=== PATIENT | male | born 1970 | race African-American/Black ===

== ENCOUNTER 2022-09-03 13:34 | Inpatient (IN) | payer OTHER ==
[2022-09-03 14:49] VITALS: BMI 27.9
[2022-09-03] MEDS ORDERED: MAG HYDROX/AL HYDROX/SIMETH 30 ML UNIT-DOSE CUP PO PRN (15:55)
[2022-09-03] MEDS ORDERED: MAGNESIUM HYDROX 2400MG/30ML ORAL SUSPENSION 30 ML CUP PO PRN (15:55)
[2022-09-03] MEDS ORDERED: LOPERAMIDE HCL 2 MG CAPSULE PO PRN (15:55)
[2022-09-03] MEDS ORDERED: P-EPHED 60MG/TRIPROLIDI 2.5MG TABLET PO PRN (15:55)
[2022-09-03] MEDS ORDERED: BENZOCAINE/MENTHOL (CHLORASEPTIC ) LOZENGE MM PRN (15:55)
[2022-09-03] MEDS ORDERED: guaiFENesin 200 MG/10 ML 10 ML UNIT-DOSE CUPS PO PRN (15:55)
[2022-09-03] MEDS ORDERED: POLYETHYLENE GLYCOL (HEALTHYLAX) 3350 17 GM PACKET PO PRN (15:55)
[2022-09-03] MEDS ORDERED: ALBUTEROL SO4 HFA INHALER IH PRN (21:23)
[2022-09-03] MEDS: THIAMINE HCL 100 MG TABLET (FP) PO SCH (21:47)
[2022-09-03] MEDS: MELATONIN 5 MG TABLETS PO SCH (21:47)
[2022-09-03] MEDS ORDERED: TUBERCULIN PPD 5 TU/0.1ML VIAL ID ONE (23:52)
[2022-09-04] MEDS: ELVITEG/COB/EMTRI/TENOF (GENVOYA) TABLET (NF) PO SCH (08:41)
[2022-09-04] MEDS: ASPIRIN 81 MG CHEWABLE TABLETS PO SCH (09:50)
[2022-09-04] MEDS: PRENATAL VITAMINS W/ FOLIC ACID TABLET (FP) PO SCH (09:50)
[2022-09-04] MEDS: LISINOPRIL 10 MG TABLET PO SCH (09:50)
[2022-09-04] MEDS: FOLIC ACID 1 MG TABLET (FP) PO SCH (09:50)
[2022-09-04] MEDS ORDERED: SALICYLIC ACID 1 APPLIC BOTTLE TP PRN (10:07)
[2022-09-04] MEDS: TOLNAFTATE 1% CREAM 15 GM TUBE TP SCH ×2 (11:49→21:22)
[2022-09-04] MEDS ORDERED: ALBUTEROL SO4 2 MG TABLET PO SCH (14:00)
[2022-09-04 17:07] LABS: HEMATOCRIT 42.2 % (35.4-49); HEMOGLOBIN 13.7 GM/dL (11.7-16.9); MCH 29.6 pg (25.7-33.7); MCHC 32.6 g/dl (32.0-35.9); MEAN CELL VOLUME 91.1 fl (80-96); MEAN PLT VOLUME 9.2 fl (7.5-11.1); PLATELET COUNT 204 10^3/uL (134-434); RBC 4.64 M/mm3 (4.00-5.60); RDW 13.9 % (11.9-15.9)
[2022-09-04 17:08] LABS: CALCIUM 9.4 mg/dL (8.5-10.1)
[2022-09-04 17:09] LABS: ALBUMIN 3.4 g/dl (3.4-5.0); BLOOD UREA NITROGEN 15.5 mg/dL (7-18)
[2022-09-04 17:12] LABS: CREATININE 1.1 mg/dL (0.55-1.3)
[2022-09-04 17:14] LABS: BILIRUBIN,TOTAL 0.2 mg/dL (0.2-1); TOT PROT 7.3 g/dl (6.4-8.2)
[2022-09-04 18:04] LABS: SYPHILIS W/ RPR CONF REACTIVE (NONREACTIVE)
[2022-09-04] MEDS: MELATONIN 5 MG TABLETS PO SCH (21:22)
[2022-09-04] MEDS: THIAMINE HCL 100 MG TABLET (FP) PO SCH (21:22)
[2022-09-04] MEDS: ACETAMINOPHEN 325 MG TABLET (FP) PO PRN (21:23)
[2022-09-04] MEDS: GABAPENTIN 300 MG CAPSULE PO SCH (21:48)
[2022-09-05] MEDS: ELVITEG/COB/EMTRI/TENOF (GENVOYA) TABLET (NF) PO SCH (07:03)
[2022-09-05] MEDS: ASPIRIN 81 MG CHEWABLE TABLETS PO SCH (09:43)
[2022-09-05] MEDS: FOLIC ACID 1 MG TABLET (FP) PO SCH (09:43)
[2022-09-05] MEDS: GABAPENTIN 300 MG CAPSULE PO SCH ×2 (09:44→21:13)
[2022-09-05] MEDS: LISINOPRIL 10 MG TABLET PO SCH (09:44)
[2022-09-05] MEDS: TOLNAFTATE 1% CREAM 15 GM TUBE TP SCH ×2 (09:44→21:36)
[2022-09-05] MEDS: PRENATAL VITAMINS W/ FOLIC ACID TABLET (FP) PO SCH (09:44)
[2022-09-05] MEDS: hydrOXYzine PAMOATE 25 MG CAPSULE (FP) PO PRN (21:12)
[2022-09-05] MEDS: THIAMINE HCL 100 MG TABLET (FP) PO SCH (21:13)
[2022-09-05] MEDS: MELATONIN 5 MG TABLETS PO SCH (21:13)
[2022-09-06] MEDS: hydrOXYzine PAMOATE 25 MG CAPSULE (FP) PO PRN ×2 (06:37→21:40)
[2022-09-06] MEDS: LISINOPRIL 10 MG TABLET PO SCH (09:21)
[2022-09-06] MEDS: ASPIRIN 81 MG CHEWABLE TABLETS PO SCH (09:21)
[2022-09-06] MEDS: PRENATAL VITAMINS W/ FOLIC ACID TABLET (FP) PO SCH (09:21)
[2022-09-06] MEDS: TOLNAFTATE 1% CREAM 15 GM TUBE TP SCH ×2 (09:21→21:47)
[2022-09-06] MEDS: FOLIC ACID 1 MG TABLET (FP) PO SCH (09:21)
[2022-09-06] MEDS: GABAPENTIN 300 MG CAPSULE PO SCH ×2 (09:21→21:39)
[2022-09-06] MEDS ORDERED: ELVITEG/COB/EMTRI/TENOF (GENVOYA) TABLET (NF) PO SCH (10:54)
[2022-09-06] MEDS: ELVITEG/COB/EMTRI/TENOF (GENVOYA) TABLET (NF) PO SCH ×2 (11:28→12:42)
[2022-09-06] MEDS: DOCUSATE SODIUM 100 MG CAPSULE (FP) PO PRN (21:39)
[2022-09-06] MEDS: THIAMINE HCL 100 MG TABLET (FP) PO SCH (21:39)
[2022-09-06] MEDS: MELATONIN 5 MG TABLETS PO SCH (21:40)
[2022-09-07] MEDS: FOLIC ACID 1 MG TABLET (FP) PO SCH (09:35)
[2022-09-07] MEDS: GABAPENTIN 300 MG CAPSULE PO SCH ×2 (09:35→21:20)
[2022-09-07] MEDS: hydrOXYzine PAMOATE 25 MG CAPSULE (FP) PO PRN ×2 (09:35→21:20)
[2022-09-07] MEDS: LISINOPRIL 10 MG TABLET PO SCH (09:35)
[2022-09-07] MEDS: TOLNAFTATE 1% CREAM 15 GM TUBE TP SCH ×2 (09:35→21:26)
[2022-09-07] MEDS: PRENATAL VITAMINS W/ FOLIC ACID TABLET (FP) PO SCH (09:35)
[2022-09-07] MEDS: ASPIRIN 81 MG CHEWABLE TABLETS PO SCH (09:35)
[2022-09-07] MEDS: ELVITEG/COB/EMTRI/TENOF (GENVOYA) TABLET (NF) PO SCH (09:37)
[2022-09-07] MEDS: DOCUSATE SODIUM 100 MG CAPSULE (FP) PO PRN (21:20)
[2022-09-07] MEDS: MELATONIN 5 MG TABLETS PO SCH (21:20)
[2022-09-07] MEDS: THIAMINE HCL 100 MG TABLET (FP) PO SCH (21:20)
[2022-09-08] MEDS: hydrOXYzine PAMOATE 25 MG CAPSULE (FP) PO PRN ×2 (06:27→21:14)
[2022-09-08] MEDS: ASPIRIN 81 MG CHEWABLE TABLETS PO SCH (09:21)
[2022-09-08] MEDS: ELVITEG/COB/EMTRI/TENOF (GENVOYA) TABLET (NF) PO SCH (09:22)
[2022-09-08] MEDS: GABAPENTIN 300 MG CAPSULE PO SCH ×2 (09:22→21:14)
[2022-09-08] MEDS: PRENATAL VITAMINS W/ FOLIC ACID TABLET (FP) PO SCH (09:22)
[2022-09-08] MEDS: LISINOPRIL 10 MG TABLET PO SCH (09:22)
[2022-09-08] MEDS: IBUPROFEN 400 MG TABLET (FP) PO PRN (09:22)
[2022-09-08] MEDS: FOLIC ACID 1 MG TABLET (FP) PO SCH (09:22)
[2022-09-08] MEDS: TOLNAFTATE 1% CREAM 15 GM TUBE TP SCH ×2 (09:59→21:29)
[2022-09-08] MEDS: ACETAMINOPHEN 325 MG TABLET (FP) PO PRN (12:11)
[2022-09-08] MEDS: THIAMINE HCL 100 MG TABLET (FP) PO SCH (21:14)
[2022-09-08] MEDS: DOCUSATE SODIUM 100 MG CAPSULE (FP) PO PRN (21:14)
[2022-09-08] MEDS: MELATONIN 5 MG TABLETS PO SCH (21:14)
[2022-09-09] MEDS: hydrOXYzine PAMOATE 25 MG CAPSULE (FP) PO PRN ×3 (06:20→21:12)
[2022-09-09] MEDS: IBUPROFEN 400 MG TABLET (FP) PO PRN (06:20)
[2022-09-09] MEDS: ASPIRIN 81 MG CHEWABLE TABLETS PO SCH (09:47)
[2022-09-09] MEDS: LISINOPRIL 10 MG TABLET PO SCH (09:47)
[2022-09-09] MEDS: FOLIC ACID 1 MG TABLET (FP) PO SCH (09:47)
[2022-09-09] MEDS: GABAPENTIN 300 MG CAPSULE PO SCH ×2 (09:47→21:12)
[2022-09-09] MEDS: ELVITEG/COB/EMTRI/TENOF (GENVOYA) TABLET (NF) PO SCH (09:48)
[2022-09-09] MEDS: PRENATAL VITAMINS W/ FOLIC ACID TABLET (FP) PO SCH (09:48)
[2022-09-09] MEDS: ACETAMINOPHEN 325 MG TABLET (FP) PO PRN (09:49)
[2022-09-09] MEDS: TOLNAFTATE 1% CREAM 15 GM TUBE TP SCH ×2 (09:50→21:14)
[2022-09-09] MEDS: ERYTHROMYCIN 0.5% OPHTHALMIC OINTMENT 3.5 GM TUBE OS SCH (13:05)
[2022-09-09] MEDS: MELATONIN 5 MG TABLETS PO SCH (21:12)
[2022-09-09] MEDS: THIAMINE HCL 100 MG TABLET (FP) PO SCH (21:12)
[2022-09-10] MEDS: hydrOXYzine PAMOATE 25 MG CAPSULE (FP) PO PRN ×2 (06:13→13:05)
[2022-09-10] MEDS: IBUPROFEN 400 MG TABLET (FP) PO PRN ×2 (06:13→21:52)
[2022-09-10] MEDS: ASPIRIN 81 MG CHEWABLE TABLETS PO SCH (09:13)
[2022-09-10] MEDS: ELVITEG/COB/EMTRI/TENOF (GENVOYA) TABLET (NF) PO SCH (09:13)
[2022-09-10] MEDS: ERYTHROMYCIN 0.5% OPHTHALMIC OINTMENT 3.5 GM TUBE OS SCH (09:13)
[2022-09-10] MEDS: FOLIC ACID 1 MG TABLET (FP) PO SCH (09:13)
[2022-09-10] MEDS: GABAPENTIN 300 MG CAPSULE PO SCH ×2 (09:14→21:50)
[2022-09-10] MEDS: TOLNAFTATE 1% CREAM 15 GM TUBE TP SCH ×2 (09:14→21:51)
[2022-09-10] MEDS: LISINOPRIL 10 MG TABLET PO SCH (09:14)
[2022-09-10] MEDS: PRENATAL VITAMINS W/ FOLIC ACID TABLET (FP) PO SCH (09:14)
[2022-09-10] MEDS: NEOMYCIN/POLYMYX/HC OPHTHALMIC SUSPENSION 7.5 ML BOTTLE OD SCH (21:49)
[2022-09-10] MEDS: MELATONIN 5 MG TABLETS PO SCH (21:50)
[2022-09-10] MEDS: NEOMY SULF/BACITRAC ZN/POLY/HC OPHTHALMIC OINTMENT 3.5 GM TUBE OD SCH (21:50)
[2022-09-10] MEDS: valACYclovir HCL 500 MG TABLET (FP) PO SCH (21:51)
[2022-09-10] MEDS: THIAMINE HCL 100 MG TABLET (FP) PO SCH (21:51)
[2022-09-10] MEDS ORDERED: ERYTHROMYCIN 0.5% OPHTHALMIC OINTMENT 3.5 GM TUBE OS SCH (22:00)
[2022-09-11] MEDS: NEOMYCIN/POLYMYX/HC OPHTHALMIC SUSPENSION 7.5 ML BOTTLE OD SCH ×3 (06:21→18:30)
[2022-09-11] MEDS: IBUPROFEN 400 MG TABLET (FP) PO PRN (06:22)
[2022-09-11] MEDS: ASPIRIN 81 MG CHEWABLE TABLETS PO SCH (09:35)
[2022-09-11] MEDS: ELVITEG/COB/EMTRI/TENOF (GENVOYA) TABLET (NF) PO SCH (09:35)
[2022-09-11] MEDS: GABAPENTIN 300 MG CAPSULE PO SCH ×2 (09:35→21:05)
[2022-09-11] MEDS: FOLIC ACID 1 MG TABLET (FP) PO SCH (09:35)
[2022-09-11] MEDS: PRENATAL VITAMINS W/ FOLIC ACID TABLET (FP) PO SCH (09:36)
[2022-09-11] MEDS: valACYclovir HCL 500 MG TABLET (FP) PO SCH ×2 (09:36→21:05)
[2022-09-11] MEDS: TOLNAFTATE 1% CREAM 15 GM TUBE TP SCH ×2 (09:36→22:35)
[2022-09-11] MEDS: LISINOPRIL 10 MG TABLET PO SCH (09:36)
[2022-09-11] MEDS: hydrOXYzine PAMOATE 25 MG CAPSULE (FP) PO PRN ×2 (09:37→21:05)
[2022-09-11] MEDS: MELATONIN 5 MG TABLETS PO SCH (21:03)
[2022-09-11] MEDS: THIAMINE HCL 100 MG TABLET (FP) PO SCH (21:03)
[2022-09-11] MEDS: NEOMY SULF/BACITRAC ZN/POLY/HC OPHTHALMIC OINTMENT 3.5 GM TUBE OD SCH (22:35)
[2022-09-11] MEDS ORDERED: INSULIN (NOVOLOG) ASPART 100 UNITS/ML 10ML VIAL ONE (23:32)
[2022-09-12] MEDS: IBUPROFEN 400 MG TABLET (FP) PO PRN (06:16)
[2022-09-12] MEDS: NEOMYCIN/POLYMYX/HC OPHTHALMIC SUSPENSION 7.5 ML BOTTLE OD SCH ×3 (06:16→18:30)
[2022-09-12] MEDS: ELVITEG/COB/EMTRI/TENOF (GENVOYA) TABLET (NF) PO SCH (09:42)
[2022-09-12] MEDS: ASPIRIN 81 MG CHEWABLE TABLETS PO SCH (09:42)
[2022-09-12] MEDS: FOLIC ACID 1 MG TABLET (FP) PO SCH (09:42)
[2022-09-12] MEDS: hydrOXYzine PAMOATE 25 MG CAPSULE (FP) PO PRN ×2 (09:43→21:19)
[2022-09-12] MEDS: PRENATAL VITAMINS W/ FOLIC ACID TABLET (FP) PO SCH (09:43)
[2022-09-12] MEDS: GABAPENTIN 300 MG CAPSULE PO SCH ×2 (09:43→21:19)
[2022-09-12] MEDS: LISINOPRIL 10 MG TABLET PO SCH (09:43)
[2022-09-12] MEDS: valACYclovir HCL 500 MG TABLET (FP) PO SCH ×2 (09:43→21:18)
[2022-09-12] MEDS: TOLNAFTATE 1% CREAM 15 GM TUBE TP SCH ×2 (09:43→21:19)
[2022-09-12] MEDS: THIAMINE HCL 100 MG TABLET (FP) PO SCH (21:18)
[2022-09-12] MEDS: MELATONIN 5 MG TABLETS PO SCH (21:18)
[2022-09-12] MEDS: NEOMY SULF/BACITRAC ZN/POLY/HC OPHTHALMIC OINTMENT 3.5 GM TUBE OD SCH (21:18)
[2022-09-13] MEDS: NEOMYCIN/POLYMYX/HC OPHTHALMIC SUSPENSION 7.5 ML BOTTLE OD SCH ×3 (06:12→18:30)
[2022-09-13] MEDS: IBUPROFEN 400 MG TABLET (FP) PO PRN (06:12)
[2022-09-13] MEDS: hydrOXYzine PAMOATE 25 MG CAPSULE (FP) PO PRN ×2 (06:13→21:12)
[2022-09-13] MEDS: PRENATAL VITAMINS W/ FOLIC ACID TABLET (FP) PO SCH (09:52)
[2022-09-13] MEDS: TOLNAFTATE 1% CREAM 15 GM TUBE TP SCH ×2 (09:52→21:12)
[2022-09-13] MEDS: valACYclovir HCL 500 MG TABLET (FP) PO SCH ×2 (09:54→21:11)
[2022-09-13] MEDS: ASPIRIN 81 MG CHEWABLE TABLETS PO SCH (09:54)
[2022-09-13] MEDS: FOLIC ACID 1 MG TABLET (FP) PO SCH (09:54)
[2022-09-13] MEDS: GABAPENTIN 300 MG CAPSULE PO SCH ×2 (09:55→21:11)
[2022-09-13] MEDS: LISINOPRIL 10 MG TABLET PO SCH (09:55)
[2022-09-13] MEDS: ELVITEG/COB/EMTRI/TENOF (GENVOYA) TABLET (NF) PO SCH (09:58)
[2022-09-13] MEDS: MELATONIN 5 MG TABLETS PO SCH (21:10)
[2022-09-13] MEDS: THIAMINE HCL 100 MG TABLET (FP) PO SCH (21:10)
[2022-09-13] MEDS: NEOMY SULF/BACITRAC ZN/POLY/HC OPHTHALMIC OINTMENT 3.5 GM TUBE OD SCH (21:11)
[2022-09-13] MEDS: DOCUSATE SODIUM 100 MG CAPSULE (FP) PO PRN (21:11)
[2022-09-14] MEDS: NEOMYCIN/POLYMYX/HC OPHTHALMIC SUSPENSION 7.5 ML BOTTLE OD SCH ×3 (06:19→18:27)
[2022-09-14] MEDS: hydrOXYzine PAMOATE 25 MG CAPSULE (FP) PO PRN ×3 (06:20→21:27)
[2022-09-14] MEDS: IBUPROFEN 400 MG TABLET (FP) PO PRN ×2 (06:21→21:29)
[2022-09-14] MEDS: ELVITEG/COB/EMTRI/TENOF (GENVOYA) TABLET (NF) PO SCH (09:34)
[2022-09-14] MEDS: ASPIRIN 81 MG CHEWABLE TABLETS PO SCH (09:34)
[2022-09-14] MEDS: FOLIC ACID 1 MG TABLET (FP) PO SCH (09:35)
[2022-09-14] MEDS: LISINOPRIL 10 MG TABLET PO SCH (09:35)
[2022-09-14] MEDS: valACYclovir HCL 500 MG TABLET (FP) PO SCH ×2 (09:35→21:26)
[2022-09-14] MEDS: GABAPENTIN 300 MG CAPSULE PO SCH ×2 (09:35→21:26)
[2022-09-14] MEDS: TOLNAFTATE 1% CREAM 15 GM TUBE TP SCH ×2 (09:36→21:26)
[2022-09-14] MEDS: PRENATAL VITAMINS W/ FOLIC ACID TABLET (FP) PO SCH (09:36)
[2022-09-14] MEDS: DOCUSATE SODIUM 100 MG CAPSULE (FP) PO PRN (21:26)
[2022-09-14] MEDS: MELATONIN 5 MG TABLETS PO SCH (21:27)
[2022-09-14] MEDS: NEOMY SULF/BACITRAC ZN/POLY/HC OPHTHALMIC OINTMENT 3.5 GM TUBE OD SCH (21:27)
[2022-09-14] MEDS: THIAMINE HCL 100 MG TABLET (FP) PO SCH (21:27)
[2022-09-15] MEDS: hydrOXYzine PAMOATE 25 MG CAPSULE (FP) PO PRN ×2 (06:22→21:17)
[2022-09-15] MEDS: NEOMYCIN/POLYMYX/HC OPHTHALMIC SUSPENSION 7.5 ML BOTTLE OD SCH ×3 (06:22→18:19)
[2022-09-15] MEDS: ASPIRIN 81 MG CHEWABLE TABLETS PO SCH (09:47)
[2022-09-15] MEDS: valACYclovir HCL 500 MG TABLET (FP) PO SCH ×2 (09:47→21:16)
[2022-09-15] MEDS: GABAPENTIN 300 MG CAPSULE PO SCH ×2 (09:47→21:16)
[2022-09-15] MEDS: PRENATAL VITAMINS W/ FOLIC ACID TABLET (FP) PO SCH (09:47)
[2022-09-15] MEDS: FOLIC ACID 1 MG TABLET (FP) PO SCH (09:47)
[2022-09-15] MEDS: TOLNAFTATE 1% CREAM 15 GM TUBE TP SCH ×2 (09:48→22:32)
[2022-09-15] MEDS: ELVITEG/COB/EMTRI/TENOF (GENVOYA) TABLET (NF) PO SCH (09:48)
[2022-09-15] MEDS: LISINOPRIL 10 MG TABLET PO SCH (09:49)
[2022-09-15] MEDS: THIAMINE HCL 100 MG TABLET (FP) PO SCH (21:17)
[2022-09-15] MEDS: DOCUSATE SODIUM 100 MG CAPSULE (FP) PO PRN (21:17)
[2022-09-15] MEDS: IBUPROFEN 400 MG TABLET (FP) PO PRN (21:17)
[2022-09-15] MEDS: MELATONIN 5 MG TABLETS PO SCH (21:18)
[2022-09-15] MEDS: NEOMY SULF/BACITRAC ZN/POLY/HC OPHTHALMIC OINTMENT 3.5 GM TUBE OD SCH (21:18)
[2022-09-16] MEDS: NEOMYCIN/POLYMYX/HC OPHTHALMIC SUSPENSION 7.5 ML BOTTLE OD SCH ×3 (06:16→18:18)
[2022-09-16] MEDS: hydrOXYzine PAMOATE 25 MG CAPSULE (FP) PO PRN ×2 (06:16→21:12)
[2022-09-16] MEDS: ASPIRIN 81 MG CHEWABLE TABLETS PO SCH (09:29)
[2022-09-16] MEDS: ELVITEG/COB/EMTRI/TENOF (GENVOYA) TABLET (NF) PO SCH (09:29)
[2022-09-16] MEDS: GABAPENTIN 300 MG CAPSULE PO SCH ×2 (09:29→21:12)
[2022-09-16] MEDS: FOLIC ACID 1 MG TABLET (FP) PO SCH (09:29)
[2022-09-16] MEDS: PRENATAL VITAMINS W/ FOLIC ACID TABLET (FP) PO SCH (09:29)
[2022-09-16] MEDS: valACYclovir HCL 500 MG TABLET (FP) PO SCH ×2 (09:30→21:12)
[2022-09-16] MEDS: LISINOPRIL 10 MG TABLET PO SCH (09:30)
[2022-09-16] MEDS: TOLNAFTATE 1% CREAM 15 GM TUBE TP SCH ×2 (09:30→21:13)
[2022-09-16] MEDS: DOCUSATE SODIUM 100 MG CAPSULE (FP) PO PRN (21:12)
[2022-09-16] MEDS: MELATONIN 5 MG TABLETS PO SCH (21:13)
[2022-09-16] MEDS: THIAMINE HCL 100 MG TABLET (FP) PO SCH (21:13)
[2022-09-16] MEDS: NEOMY SULF/BACITRAC ZN/POLY/HC OPHTHALMIC OINTMENT 3.5 GM TUBE OD SCH (21:15)
[2022-09-17] MEDS: hydrOXYzine PAMOATE 25 MG CAPSULE (FP) PO PRN (06:18)
[2022-09-17] MEDS: NEOMYCIN/POLYMYX/HC OPHTHALMIC SUSPENSION 7.5 ML BOTTLE OD SCH (07:10)
[2022-09-17 08:02] VITALS: BP 120/77; PULSE 72; RESP 19; TEMP 96.4
== END 2022-09-17 08:45 | disposition home or self-care (01) | DRG 772 ==
LOC: YASAS 13:34 → Y3E 20:01
PROVIDERS: ADMIT Allergy & Immunology; ATTEND Psychiatry & Neurology Pain Medicine
PROC: HZ42ZZZ Group Counseling for Substance Abuse Treatment, Cognitive-Behavioral (ICD-10-PCS; principal; 2022-09-03)
DX: F10.20 Alcohol dependence, uncomplicated (principal); F14.20 Cocaine dependence, uncomplicated; F12.20 Cannabis dependence, uncomplicated; F17.210 Nicotine dependence, cigarettes, uncomplicated; F39 Unspecified mood [affective] disorder; F63.9 Impulse disorder, unspecified; F63.81 Intermittent explosive disorder; I10 Essential (primary) hypertension; Z21 Asymptomatic human immunodeficiency virus [HIV] infection status; J45.909 Unspecified asthma, uncomplicated; G62.9 Polyneuropathy, unspecified; L84 Corns and callosities; B35.3 Tinea pedis; H00.016 Hordeolum externum left eye, unspecified eyelid; Z62.810 Personal history of physical and sexual abuse in childhood; Z91.013 Allergy to seafood; Z91.018 Allergy to other foods; Z56.0 Unemployment, unspecified; Z59.01 Sheltered homelessness
CPT/HCPCS: 36415; 80053; 81003; 82962; 85027; 86593; 86780; 86803; C9803-CS; U0003; U0005